=== PATIENT | male | born 1950 | race Caucasian/White ===

== ENCOUNTER 2017-10-15 11:59 | Inpatient (IN) | payer OTHER ==
[2017-10-15] VITALS (7 sets, daily range): BP systolic 120–153; BP diastolic 72–96
[~2017-10-15] VITALS: Ht 175.3 cm; Wt 99.8 kg
--- NOTE | ~2017-10-15 | 2DMMODE ---
[facility] [address] [place] [address] 2 D/M-MODE ECHOCARDIOGRAM Name: BRODY ALVES Room #: 218-P ADM IN M.R.#: [id number] Admission: 10/15/17 Attend Phys: Bereket Avalos, Discharge: Date of : 50 Date of Service: 10/16/17 0955 Report #: [id number] THIS REPORT FOR: //name// APPROVED REPORT Study performed: 10/16/2017 08:40:52 EXAM: Comprehensive 2D, Doppler, and color-flow Echocardiogram Patient Location: Bedside Room #: 218 Status: routine BSA: 2.15 HR: 63 bpm BP: 126/86 mmHg Rhythm: NSR Other Information Study Quality: Adequate Indications Palpitations Hypertension/HDD Near syncope, Chest discomfort. Hx: DM 2D Dimensions RVDd: 41.29 mm LVEF(%): 65.34 (>50%) IVSd: 9.06 (7-11mm) LVOT Diam: 20.15 (18-24mm) LVDd: 51.02 mm PWd: 11.31 (7-11mm) Ascending Ao: 34.17 (22-36mm) LVDs: 32.63 (25-40mm) Aortic Root: 34.02 mm IVC: 17.00 mm TAPSE: 2.30 (<1.7) Saini's LVEF: 65.34 % Volumes Left Atrial Volume (Systole) Single Plane 4CH: 27.91 mL Single Plane 2CH: 56.84 mL LA ESV Index: 20.00 mL/m2 Aortic Valve AoV Peak Terry.: 1.81 m/s AO Peak Gr.: 13.10 mmHg LVOT Max P.63 mmHg LVOT Max V: 1.29 m/s ED Vmax: 2.27 cm2 [facility] [place] [address] 2 D/M-MODE ECHOCARDIOGRAM Name: BRODY ALVES Room #: 218-P [facility] IN M.R.#: [id number] Admission: 10/15/17 Attend Phys: Bereket Avalos, Discharge: Date of : 50 Date of Service: 10/16/17 0955 Report #: [id number] Mitral Valve E/A Ratio: 0.8 MV Decel. Time: 192.73 ms MV E Max Terry.: 0.75 m/s MV A Terry.: 0.90 m/s MV PHT: 55.89 ms IVRT: 101.50 ms Pulmonary Valve PV Peak Terry.: 1.08 m/s PV Peak Gr.: 4.64 mmHg Pulmonary Vein P Vein S: 0.49 m/s P Vein A: 0.35 m/s P Vein D: 0.33 m/s P Vein A Dur.: 133.8 msec P Vein S/D Ratio: 1.48 Tricuspid Valve TR Peak Terry.: 2.86 m/s RAP Estimate: 5.00 mmHg TR Peak Gr.: 32.74 mmHg PA Pressure: 38.00 mmHg Left Ventricle The left ventricle is normal size. There is normal LV segmental wall motion. There is normal left ventricular wall thickness. The left ventricular systolic function is normal. LVEF is 55-60%. Grade I - abnormal relaxation pattern. Right Ventricle The right ventricle is normal size. The right ventricular systolic function is normal. Atria The left atrium size is normal. The right atrium size is normal. Aortic Valve The aortic valve is mildly sclerotic. No aortic regurgitation is present. There is no aortic valvular stenosis. Mitral Valve The mitral valve is normal in structure. Trace mitral regurgitation. No evidence of mitral valve stenosis. Tricuspid Valve The tricuspid valve is normal in structure. Trace tricuspid [facility] [address] [address] 2 D/M-MODE ECHOCARDIOGRAM Name: BRODY ALVES Room #: 218-P ADM IN [facility]#: [id number] Admission: 10/15/17 Attend Phys: Bereket Avalos, Discharge: Date of : 50 Date of Service: 10/16/17 0955 Report #: [id number] regurgitation. Estimated PAP 38 mmHg. Pulmonic Valve The pulmonary valve is normal in structure. Trace to mild pulmonic regurgitation. Great Vessels The aortic root is normal in size. The ascending aorta is normal in size. IVC is normal in size and collapses >50% with inspiration. Pericardium There is no pericardial effusion. <Conclusion> The left ventricular systolic function is normal. There is normal LV segmental wall motion. LVEF is 55-60%. Grade I diastolic dysfunction The aortic valve is mildly sclerotic. No aortic regurgitation or stenosis The mitral valve is normal in structure. Trace mitral regurgitation. Trace tricuspid regurgitation. Estimated pulmonary artery pressure of 38 mmHg. There is no pericardial effusion. <ELECTRONICALLY SIGNED> By: Armando Esqueda MD, FACC 10/16/1755 4 4 Armando Esqueda MD, FACC /INF
--- NOTE | ~2017-10-15 | EKG ---
[place] [address] [facility] [place] [address] ELECTROCARDIOGRAM REPORT Name: BRODY ALVES Room #: 218-P ADM IN M.R.#: [id number] Admission: 10/15/17 Attend Phys: Bereket Avalos DO Discharge: Date of : 50 Report #: [id number] THIS REPORT FOR: //name// [facility] ED Test Date: 2017-10-15 Test Time: 12:14:08 Pat Name: BRODY ALVES Department: Room: 218 Gender: M Inventory Control Coordinator: Corinna : 1950 Requested By: Gabriella Betancourt Order Number: [id number] MD: Armando Esqueda Measurements Intervals [place] Rate: 66 P: 9 RI: 160 QRS: 36 QRSD: 86 T: 12 QT: 414 QTc: 434 Interpretive Statements Sinus rhythm No significant abnormality No previous ECG available for comparison Electronically Signed On 10-15-2017 17:32:36 [employer] by Armando Esqueda [email or web address] <ELECTRONICALLY SIGNED> By: Armando Esqueda MD, [facility] 10/15/17 1732 1214 1214 Armando Esqueda MD, FACC /EPI
[2017-10-15 12:34] LABS: ABSOLUTE NEUTROPHILS 4.8 thou/uL (1.4-8.2); EOSINOPHILS 1.4 % (0.0-3.0); HEMATOCRIT 39.8 % (42.0-52.0); HEMOGLOBIN 13.6 gm/dL (14.0-18.0); LYMPHOCYTES 17.7 % (24.0-44.0); MCH 31.8 pg (26.0-34.0); MCHC 34.2 g/dL (28.0-37.0); MCV 92.8 fL (80.0-100.0); MONOCYTES 6.5 % (1.0-8.0); PLATELET COUNT 186 thou/uL (150-400); POLYS 73.4 % (36.0-66.0); RBC 4.29 mil/uL (4.50-6.00); WBC 6.6 thou/uL (4.0-11.0)
[2017-10-15 12:38] LABS: ANION GAP 8 mmol/L (7-16); BUN 19 mg/dL (7-18); CALCIUM 8.8 mg/dL (8.5-10.1); CHLORIDE 107 mmol/L (98-107); CO2 28 mmol/L (21-32); GLUCOSE 147 mg/dL (74-106); POTASSIUM 3.9 mmol/L (3.5-5.1); SODIUM 143 mmol/L (136-145)
[2017-10-15 12:47] LABS: TROPONIN-I < 0.04 ng/mL (<0.06)
[2017-10-15 15:25] LABS: CHOLESTEROL 175 mg/dL (<200); HDL CHOLESTEROL 28 mg/dL (>40); LDL CHOLESTEROL 92 mg/dL (<100); TC:HDL 6.3 Ratio (Not establshd); TRIGLYCERIDE 278 mg/dL (<150); VLDL 56 mg/dL (<40)
[2017-10-15] MEDS ORDERED: LISINOPRIL10 MG PO (18:21)
[2017-10-15] MEDS ORDERED: METFORMIN HCL500 MG PO (18:21)
[2017-10-15] MEDS ORDERED: KLOR-CON 1010 MEQ PO (18:22)
[2017-10-15] MEDS ORDERED: PROTONIX 20 MG20 M1 PO (18:22)
[2017-10-15] MEDS ORDERED: CALCIUM 500 +1 EAC5 PO (18:23)
[2017-10-16 04:30] VITALS: BP 126/86
[2017-10-16 07:55] VITALS: BP 130/76
[2017-10-16 11:55] VITALS: BP 153/93
[2017-10-16] MEDS ORDERED: ADULT LOW DOSE81 MG PO (12:23)
[2017-10-16 12:29] VITALS: BP 153/97
== END 2017-10-16 14:15 | disposition home or self-care (01) | DRG 312 ==
LOC: ER 11:59 → EROBS 14:02 → 2N 14:02 → ENTRNSPT 10-16 13:48 → EDTRNSPTSTS 10-16 13:53 → 2N 10-16 14:15
PROVIDERS: Emergency Medicine; Nurse Practitioner
PROC: B24BZZ4 Ultrasonography of Heart with Aorta, Transesophageal (ICD-10-PCS; principal; 2017-10-16)
DX: R55 Syncope and collapse (principal); I10 Essential (primary) hypertension; R00.2 Palpitations; E11.9 Type 2 diabetes mellitus without complications; D64.9 Anemia, unspecified; Z23 Encounter for immunization; Z87.11 Personal history of peptic ulcer disease; Z87.891 Personal history of nicotine dependence
CPT/HCPCS: 10081